=== PATIENT | male | born 1945 | race Caucasian/White ===

== ENCOUNTER 2019-02-08 10:16 | Inpatient (IN) ==
--- NOTE | 2019-02-08 10:18 | Anesthesia Evaluation PreOp ---
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 Any Significant HX Other Medical History: Renal (kidney stones), GERD Anesthesia History: No Prior Anesthetic Complications, Past Anesthesia Alcohol Use: none Drug use: none Medications and Allergies Allopurinol [Zyloprim 300 MG] 300 mg PO DAILY 07/05/16 [History] Aspirin 81 mg PO DAILY 07/05/16 [History] Atenolol [Tenormin] 25 mg PO DAILY 07/05/16 [History] Clopidogrel [Plavix] 75 mg PO DAILY 07/05/16 [History] Cyanocobalamin (Vitamin B-12) [Vitamin B-12] 1,000 mcg SL DAILY 07/05/16 [History] Ergocalciferol (VITAMIN D2) [Vitamin D] 400 unit PO DAILY 07/05/16 [History] Fexofenadine HCl 60 mg PO DAILY 07/05/16 [History] Ginkgo Biloba 60 mg PO DAILY 07/05/16 [History] Glucosamine Sulfate Dipot Chlr [Glucosamine] 1,000 mg PO DAILY 07/05/16 [History] Lactobacillus Acidophilus [Acidophilus] 1 tab PO DAILY 07/05/16 [History] Lisinopril [Zestril] 5 mg PO DAILY PRN 07/05/16 [History] Lovastatin [Mevacor] 20 mg PO HS 07/05/16 [History] Methocarbamol [Robaxin] 500 mg PO BID PRN 07/05/16 [History] OxyCODONE/APAP 5/325 [Percocet 5/325 MG] 2 each PO Q4H PRN #10 tablet 07/05/16 [Rx] Oxycodone HCl/Acetaminophen [Percocet 5-325 mg Tablet] 1 tab PO TID PRN 07/05/16 [History] Tamsulosin [Flomax] 0.4 mg PO DAILY 07/05/16 [History] Allergy/AdvReac Type Severity Reaction Status Date / Time ciprofloxacin Allergy See Verified 01/28/19 08:24 Comments Tetracyclines Allergy Hives Verified 01/28/19 08:24 - Meds/Allergy Pre-op Review Medications Reviewed: Yes Allergies Reviewed: Yes Beta Blockers on Current Med List: Yes If Beta Blockers taken, Date/Time (Last Dose taken): 02/07/2019 at 2200 Anesthesia Results - Labs Laboratory Tests 10/01/18 01/28/19 01/28/19 08:08 08:55 08:55 WBC 7.5 Hgb 15.1 Hct 44.0 Plt Count 100 L Sodium 138 Potassium 4.4 BUN 14 Creatinine 1.22 - Imaging EKG: report reviewed ( 01/28/2019 SINUS BRADYCARDIA NONSPECIFIC T-WAVE ABNORMALITY 07/05/2016 SB, minimal voltage criteria for LVH) Anesthesia Exam O2 Sat Height 1.73 m Weight 78.471 kg O2 Sat by Pulse Oximetry 96 Vital Signs Temp Pulse Resp BP Pulse Ox 97.7 F 62 18 138/89 96 02/08/19 10:53 02/08/19 10:53 02/08/19 10:53 02/08/19 10:53 02/08/19 10:53 Height: 5'8'' Weight: 173 lbs NPO (# of Hours): 8 Pain Scale: 0 Pain Scale Used: Numeric (1 - 10) - HEENT Pupil (Motor): EOMI Mallampati: III Teeth: Normal Oral Opening: Greater than 3 - CHARGING CRANE OPERATOR LOC: Oriented CHARGING CRANE OPERATOR Motor: Normal RUE, Normal LUE, Normal RLE, Normal LLE, Normal Face CHARGING CRANE OPERATOR Sensory: Normal: RUE, LUE, RLE, LLE, Face - Cardiac Rhythm: Regular Murmur: None - Pulmonary Breath Sounds: bilateral Clear Respiratory Effort: Symmetrical Anesthesia Assess/Plan ASA Score: 3 Level of consciousness: Cooperative, Oriented, Tranquil Anesthetic Plan: General Monitoring Plan: Standard Monitors Recovery Plan: PACU
[2019-02-08] MEDS ORDERED: CeFAZolin Syr 2,000MG/20 ML 2,000 MG/20 ML SYRINGE IVPB ONE (10:55)
[2019-02-08] MEDS ORDERED: Albuterol 2.5 MG/3 ML NEBULIZER IH ONE (10:55)
[2019-02-08] MEDS ORDERED: Ringers Solution, Lactated 1,000 ML IVC SCH (11:00)
[2019-02-08] MEDS ORDERED: *HR* HYDROmorphone (PF) 1 MG/ML SYRINGE IVP PRN (11:24)
[2019-02-08] MEDS ORDERED: Ondansetron 4 MG/2 ML VIAL IVP ONE (11:24)
[2019-02-08] MEDS ORDERED: *HR* OxyCODONE Immed Rel 5 MG TABLET PO PRN (11:24)
[2019-02-08] MEDS ORDERED: Neostigmine Methylsulfate 3 MG/3 ML SYRINGE ONE ×2 (11:56→15:06)
[2019-02-08] MEDS ORDERED: *HR* Rocuronium Bromide 50 MG/5 ML VIAL ONE ×2 (12:02→15:51)
[2019-02-08] MEDS ORDERED: Ondansetron 4 MG/2 ML VIAL ONE (12:02)
[2019-02-08] MEDS ORDERED: Lidocaine -MPF 4% 5 ML AMPUL ONE (12:02)
[2019-02-08] MEDS ORDERED: *HR* FentaNYL (PF) 100 MCG/2 ML VIAL ONE ×3 (12:02→15:05)
[2019-02-08] MEDS ORDERED: *HR* Propofol 200 MG/20 ML VIAL IVP ONE (12:02)
[2019-02-08] MEDS ORDERED: Dexamethasone 4 MG/ML VIAL ONE (12:02)
[2019-02-08] MEDS ORDERED: Lidocaine -MPF 2% 2 ML VIAL ONE (12:02)
[2019-02-08] MEDS ORDERED: *HR* Midazolam HCl 2 MG/2 ML VIAL ONE (12:02)
--- NOTE | 2019-02-08 12:42 | History & Physical Report ---
Date of Encounter: 02/08/19 Time of Encounter: 12:42 24 Hour HP Update - Instructions Instructions: If the History and Physical is less than 30 days old and was completed prior to A.M. admission and or procedure and has NOT been updated on calendar day of procedure please complete this update prior to performing procedure. - Update Patient reports changes in Medical Condition: No Changes in examination, assessment, or condition: No Changes in Medication: No Preop tests/diagnostics Reviewed: Yes Surgery Remains Indicated: Yes Consent for Planned Operative Procedure(s) Verified: Yes - Pre-Operative Checklist Preoperative Checklist Indicated: Yes Prophylactic Antibiotic Ordered: Yes Home Medications Include Beta Parker: Yes Is VTE Prophylaxis Indicated?: Yes
[2019-02-08] MEDS ORDERED: EPHEDrine 50 MG/ML VIAL ONE (12:52)
[2019-02-08] MEDS ORDERED: *HR* HYDROMORPHONE 2 MG/ML VIAL ONE (17:43)
--- NOTE | 2019-02-08 18:16 | Operative Note ---
Date of procedure: 02/08/19 Pre-op diagnosis: Prostate cancer Post-op diagnosis: same Procedure: Robotic-assisted radical prostatectomy with bilateral pelvic lymph node dissection Anterior urethropexy Implants: 20-Honduran Patiño catheter 19-Honduran Adolfo drain Complications: None Anesthesia: GETA Surgeon: Sly Moreno Was there an assistant auto center manager present: Yes Weigher Operator: Ania Girard Estimated blood loss (cc): 240 Specimen: Prostate, bilateral pelvic lymph nodes, fat over prostate Condition: stable Disposition: PACU Procedure in Detail: INDICATIONS FOR PROCEDURE: Mr. Warren is a 73 year-old male with history of elevated PSA. He was found on prostate needle biopsy to have Haim 4+4 prostate cancer. Two cores were positive on the biopsy. He is now presenting for robotic assisted prostatectomy with bilateral pelvic lymph node dissection. He was informed of the risks of the procedure including but not limited to bleeding, infection, injury to other structures, need for further procedures, lymphocele, urinary incontinence, urine leak, erectile dysfunction, bladder neck contracture, rectal injury, and the risk of anesthesia. He is willing to proceed. PROCEDURE: After informed consent was obtained, the patient was taken to the operating room, placed supine on the table. He was given IV antibiotics for antibiotic coverage. He had ITZEL's and SCD's placed on the lower extremities for DVT prophylaxis. Induction of general anesthesia was performed. The arms were tucked and he was placed in lithotomy position. He was secured to the OR table with padding. A 10mm incision was made in the infraumbilical region.. The Veress needle was introduced. The water drop test passed. Pneumoperitoneum was initiated with low pressures initially. The abomen was insufflated. I then placed a robotic port through this incision. Once the trocar was in place, the 0 degree camera for the robot was placed in the field and remaining trocars were placed. Robotic ports were placed x 2 on the right side. We placed another robotic port to the left of the umbilicus. We also placed a 12mm port in the left lower quadrant and a 5mm port superior and to the left of the umbilicus. Once all trocars were in place, the robot was docked to the patient and the monopolar scissors were placed on the right robotic arm. The bipolar [place] was in the left robotic arm and the Prograsp in the 4th arm. A posterior approach was initiated. Approximately 1 to 2 cm above the rectum cautery was used to incise the peritoneum. I proceeded with dissection, but I had difficulty finding the vas deferens. Care was taken to avoid the rectum, but I was not confident in my plane of dissection. Therefore, I aborted that approach and proceeded with an anterior dissection. We initially retracted the bowel with the 4th arm. The medial umbilical ligaments were cauterized and the bladder was taken down off the anterior abdominal wall using electrocautery. The bladder was dissected down to the e ndopelvic fascia. The bladder was then grasped with a 4th arm and retracted cephalad. We then swept the periprostatic fat off the prostate as well as the pelvic sidewall. The fat was sent for specimen. We then incised the endopelvic fascia on both sides and carried the incision up to the prostatic apex, sweeping the levator fibers off of the prostate. I then placed a backbleeding stitch near the bladder neck using an 0 Vicryl suture. We then turned our attention to the bladder neck which was incised with the monopolar cautery until the catheter was visualized at the bladder neck. The posterior bladder neck was then opened using the cautery until the space between the prostate and the bladder neck was visualized. Careful dissection using cautery continued along the posterior aspect of the bladder neck. Eventually, the vas deferens and seminal vesicals were encountered. These were brought up into the field and elevated with the fourth arm. I dissected out the vas deferens and seminal vesicles carefully. Denonvillier's fascia was very adherent to the prostate. I carefully dissected it off the prostate posteriorly. The left nerve bundle was then released sharply. I carefully divided the pedicles using multiple Hem-o-von clips to clip the larger prostatic pedicle. Once the pedicles were controlled the nerves were carefully dissected off the posterior aspect of the prostate. Attention was then turned to the right side. The nerve bundle was again released sharply and the pedicles were controlled using Hem-o-von clips. The pedicle was quite adherent to the prostate. I did try to do maintaining somewhat of a nerve sparing approach. We then used the 4th arm to place the prostate on stretch in cephalad direction. The puboprostatic ligaments were carefully incised sharply. We then transected the dorsal venous complex sharply. There was a mild amount of bleeding from the dorsal vein. The dorsal vein was closed using an 0 Vicryl suture in a [id number] fashion. This suture was then placed into the periosteum of the symphysis pubis. This was tied down to provide a urethropexy to help with postoperative continence. Once I got to the urethra this was incised with cold scissors. I cut across the urethra until the catheter was visualized. The catheter was removed and the posterior urethra was transected. The prostate was then freed. Hemostasis was adequate. Fibrillar was placed over top of the neurovascular bundles to help with hemostasis. Attention was then turned to the left pelvic sidewall. The external iliac vein was identified. Careful dissection then isolated the lymph node packet and the obturator nerve was identified. Weck clips were placed at the superior aspect of the lymph node packet. They were also placed at the inferior aspect of the lymph node packet. An identical approach was performed on the right side. The node packets were sent separately. The right-sided pelvic lymph nodes appeared enlarged and more firm. A Alec stitch was then performed from the Denonvillier's fascia near the bladder to an area posterior to the urethra. An 0 Vicryl suture was used. The posterior bladder neck was thinned out. I imbricated the detrusor muscle back to itself using a 3-0 Vicryl suture in a running fashion. I removed the fibrillar. The urethral vesicle anastomosis was then performed with a 3-0 V-Von suture in running fashion starting at 3 o'clock position. With two sutures tied together we then ran along the posterior side about usp. The anterior side was then run around until the bladder was reanastamosed to the urethra. The final 20 Honduran catheter was placed into the bladder and balloon filled with 15 mL of sterile water. The bladder was irrigated. No leak was identified. A 19 [place]uran Adolfo drain was placed through the trocar down into the pelvis. The trocar was removed and drain sewn in place with a suture. The robot was then undocked from the patient. Using laparoscopic instruments I then moved the string from the Endo Catch bag over to the umbilical port with the assistance of the 8 mm robotic camera. After extending the incision slightly with the electrocautery the EndoCatch bag was then removed from the camera port. The abdominal fascia was then closed in a running fashion with 0 Vicryl suture. All incisions were instilled with 0.25% Marcaine. The remaining trocars were removed under direct vision and all incisions were then closed with 4-0 Monocryl in subcuticular fashion. The patient was then awakened from general anesthesia and brought to the recovery room in good condition. All sponge, needle, and instrument counts were correct.
--- NOTE | 2019-02-08 18:44 | Anesthesia Evaluation Post Op ---
Date of Encounter: 02/08/19 Time of Encounter: 18:45 - Vital Signs Vital Signs: Vital Signs/O2 Sat/Glucose, Most Current Temp Pulse Resp BP Pulse Ox 02/08/19 18:30 77 12 89/61 98 02/08/19 18:20 79 12 90/61 98 02/08/19 18:10 98.4 F 85 10 94/60 97 - Lungs Lungs: Clear Ascult./Percussion - Airway Airway: Non-obstructed - Cardiovascular Regular Rate - Mental Status Mental Status: Alert & Oriented, Answers Appropriately - Pain Pain Scale: 0 - Nausea Vomiting Nausea Vomiting: Not Present - Hydration Hydration: NPO - Discharge PostOp Status: Transfer Patient to floor
[2019-02-08] MEDS ORDERED: Naloxone 0.4 MG/ML INJ IVP PRN (20:17)
[2019-02-08] MEDS: *HR* Heparin 5,000 UNIT/ML VIAL SQ SCH (22:49)
[2019-02-08] MEDS: 0.9 % Sodium Chloride 1,000 ML IVC SCH (23:59)
[2019-02-09 08:16] LABS: Hematocrit 34.6 % (37.5-50.1); Hemoglobin 11.5 g/dL (12.9-16.9); Mean Corpuscular HGB Conc 33.2 g/dL (31.6-35.5); Mean Corpuscular Hemoglobin 32.7 pg (28.0-33.3); Mean Corpuscular Volume 98.3 fL (83.0-100.0); Platelet Count 107 K/mcL (140-400); Red Blood Count 3.52 M/mcL (4.19-5.50); Red Cell Distribution Width 13.2 % (11.5-14.5)
[2019-02-09 08:22] LABS: BUN/Creatinine Ratio 22 (6-26); Blood Urea Nitrogen 24 mg/dL (8-23); Calcium 8.6 mg/dL (8.6-10.3); Carbon Dioxide 26 mEq/L (23-29); Chloride 105 mEq/L (98-107); Glucose 130 mg/dL (70-105); Osmolality,Calculated 296 (280-300); Potassium 4.1 mEq/L (3.5-5.1); Sodium 140 mEq/L (136-145); eGFR For Non-African Americans > 60 (> 60)
[2019-02-09] MEDS: Loratadine 10 MG TABLET PO SCH (09:24)
--- NOTE | 2019-02-09 09:32 | Urology Progress Note ---
Date of Encounter: 02/09/19 Time of Encounter: 09:29 - Assessment and Plan (1) Prostate cancer Current Visit: Yes Status: Acute Assessment and plan: 73-year-old man with a history of prostate cancer status post robotic-assisted r adical prostatectomy with bilateral pelvic lymph node dissection. He is having a slow return of bowel function. I will keep him in the hospital today on clear liquids until he begins to pass gas. I encouraged him to ambulate frequently. I will continue the drain to evacuate any mild bleeding from the pelvis. We will give a suppository today. I did inform him that his right pelvic lymph nodes did appear enlarged. We will review his pathology report once it becomes available. Progress Note Narrative: Postoperatively #1 status post robotic-assisted radical prostatectomy with bilateral pelvic lymph node dissection. His pain was well controlled overnight. He did develop some gas pains. He has not passed gas yet. Urine output has been good. TIMOTHY output has been somewhat bloody. Objective Initial Vital Signs Temp Pulse Resp BP Pulse Ox 97.7 F 62 18 138/89 96 02/08/19 10:53 02/08/19 10:53 02/08/19 10:53 02/08/19 10:53 02/08/19 10:53 - General physical appearance Present: well developed, well nourished, no distress - Respiratory Present: normal respiratory effort - Abdomen Present: distended (Mildly distended. Wounds are clean, dry, and intact. TIMOTHY was sanguinous discharge.) - Genitourinary Present: normal penis with no external lesions Urine Appearance: Present: Hematuria (Light pink colored urine. Catheter in place.) - Integumentary Present: no rash - Musculoskeletal Present: normal gait, normal posture - Labs 02/09/19 05:30 02/09/19 05:30 Diabetes panel 02/09/19 Range/Units 05:30 Sodium 140 (136-145) mEq/L Potassium 4.1 (3.5-5.1) mEq/L Chloride 105 (98-107) mEq/L Carbon Dioxide 26 (23-29) mEq/L BUN 24 H (8-23) mg/dL Creatinine 1.09 (0.70-1.30) mg/dL Glucose 130 H (70-105) mg/dL Calcium 8.6 (8.6-10.3) mg/dL Calcium panel 02/09/19 Range/Units 05:30 Calcium 8.6 (8.6-10.3) mg/dL Pituitary panel 02/09/19 Range/Units 05:30 Sodium 140 (136-145) mEq/L Potassium 4.1 (3.5-5.1) mEq/L Chloride 105 (98-107) mEq/L Carbon Dioxide 26 (23-29) mEq/L BUN 24 H (8-23) mg/dL Creatinine 1.09 (0.70-1.30) mg/dL Glucose 130 H (70-105) mg/dL Calcium 8.6 (8.6-10.3) mg/dL Adrenal panel 02/09/19 Range/Units 05:30 Sodium 140 (136-145) mEq/L Potassium 4.1 (3.5-5.1) mEq/L Chloride 105 (98-107) mEq/L Carbon Dioxide 26 (23-29) mEq/L BUN 24 H (8-23) mg/dL Creatinine 1.09 (0.70-1.30) mg/dL Glucose 130 H (70-105) mg/dL Calcium 8.6 (8.6-10.3) mg/dL Consult Discharge Plan - Plan Referrals: Ric Mclain MD [Primary Care Provider] - Sly Moreno MD [Partnered Physician] -
[2019-02-09] MEDS ORDERED: Bisacodyl 10 MG RECTAL SUPPOSITORY RC ONE (09:33)
[2019-02-09] MEDS: Ondansetron 4 MG/2 ML VIAL IVP PRN (11:05)
[2019-02-09] MEDS: Simethicone 80 MG TAB.CHEW PO PRN ×2 (15:08→23:38)
[2019-02-09] MEDS: Acetaminophen 325 MG TABLET PO PRN (15:08)
[2019-02-09] MEDS: *HR* Heparin 5,000 UNIT/ML VIAL SQ SCH ×2 (17:50→18:01)
[2019-02-09] MEDS: Metoclopramide 10 MG/2 ML VIAL IVP SCH ×2 (18:01→23:38)
[2019-02-09] MEDS: 0.9 % Sodium Chloride 1,000 ML IVC SCH ×3 (19:27→22:07)
[2019-02-09] MEDS: OXYCODONE Oral CONC 10 MG/0.5 ML ORAL.SYG SL PRN ×2 (19:44→23:39)
[2019-02-10] MEDS: 0.9 % Sodium Chloride 1,000 ML IVC SCH ×3 (04:11→23:50)
[2019-02-10] MEDS: Simethicone 80 MG TAB.CHEW PO PRN (04:35)
[2019-02-10] MEDS: Metoclopramide 10 MG/2 ML VIAL IVP SCH ×4 (05:17→23:49)
[2019-02-10] MEDS: *HR* Heparin 5,000 UNIT/ML VIAL SQ SCH ×2 (05:18→19:27)
[2019-02-10] MEDS: Ondansetron 4 MG/2 ML VIAL IVP PRN (06:20)
[2019-02-10 07:45] LABS: Hematocrit 30.8 % (37.5-50.1); Mean Corpuscular HGB Conc 32.5 g/dL (31.6-35.5); Mean Corpuscular Volume 101.7 fL (83.0-100.0); Mean Platelet Volume 11.3 fL (9.4-12.4); Platelet Count 105 K/mcL (140-400); Red Blood Count 3.03 M/mcL (4.19-5.50); Red Cell Distribution Width 13.6 % (11.5-14.5)
[2019-02-10 08:02] LABS: BUN/Creatinine Ratio 23 (6-26); Blood Urea Nitrogen 23 mg/dL (8-23); Calcium 8.2 mg/dL (8.6-10.3); Carbon Dioxide 26 mEq/L (23-29); Chloride 108 mEq/L (98-107); Glucose 117 mg/dL (70-105); Osmolality,Calculated 295 (280-300); Potassium 4.1 mEq/L (3.5-5.1); Sodium 140 mEq/L (136-145); eGFR For Non-African Americans > 60 (> 60)
[2019-02-10] MEDS ORDERED: Bisacodyl 10 MG RECTAL SUPPOSITORY RC ONE (08:46)
[2019-02-10] MEDS: Acetaminophen 325 MG TABLET PO PRN (08:50)
[2019-02-10] MEDS: Loratadine 10 MG TABLET PO SCH (08:51)
--- NOTE | 2019-02-10 08:51 | Urology Progress Note ---
Date of Encounter: 02/10/19 Time of Encounter: 08:48 - Assessment and Plan (1) Prostate cancer Current Visit: Yes Status: Acute Assessment and plan: Postop day #2 status post RARP with bilateral PLND. He is having slow return of bowel function. 1. I will keep him nothing by mouth for now with ice chips only. 2. Continue to ambulate 3-4 times per day. 3. Incentive spirometry 10/h. 4. Continue PPI and subcutaneous heparin for prophylaxis. 5. Continue TIMOTHY for now. 6. Will give a Dulcolax suppository. 7. AM labs look okay. Hematocrit has trended down somewhat, but this may be dilutional. I will repeat labs tomorrow. 8. Continue observation status. Progress Note Narrative: Postoperativel day #2 status post robotic-assisted radical prostatectomy with bilateral pelvic lymph node dissection. His pain was well controlled overnight. He feels bloated. He is belching quite a bit. No emesis. He reports a small amount of stool and minimal gas. Urine output has been good. TIMOTHY output has been somewhat bloody. Objective Initial Vital Signs Temp Pulse Resp BP Pulse Ox 97.7 F 62 18 138/89 96 02/08/19 10:53 02/08/19 10:53 02/08/19 10:53 02/08/19 10:53 02/08/19 10:53 - General physical appearance Present: well developed, well nourished, no distress - Respiratory Present: normal respiratory effort - Abdomen Present: distended (incisions are clean, dry, and intact. TIMOTHY with saphenous output.) - Genitourinary Present: normal penis with no external lesions Urine Appearance: Present: Clear (Clear to light pink.) - Integumentary Present: no rash - Musculoskeletal Present: normal posture - Labs 02/10/19 05:50 02/10/19 05:50 Diabetes panel 02/10/19 Range/Units 05:50 Sodium 140 (136-145) mEq/L Potassium 4.1 (3.5-5.1) mEq/L Chloride 108 H (98-107) mEq/L Carbon Dioxide 26 (23-29) mEq/L BUN 23 (8-23) mg/dL Creatinine 0.99 (0.70-1.30) mg/dL Glucose 117 H (70-105) mg/dL Calcium 8.2 L (8.6-10.3) mg/dL Calcium panel 02/10/19 Range/Units 05:50 Calcium 8.2 L (8.6-10.3) mg/dL Pituitary panel 02/10/19 Range/Units 05:50 Sodium 140 (136-145) mEq/L Potassium 4.1 (3.5-5.1) mEq/L Chloride 108 H (98-107) mEq/L Carbon Dioxide 26 (23-29) mEq/L BUN 23 (8-23) mg/dL Creatinine 0.99 (0.70-1.30) mg/dL Glucose 117 H (70-105) mg/dL Calcium 8.2 L (8.6-10.3) mg/dL Adrenal panel 02/10/19 Range/Units 05:50 Sodium 140 (136-145) mEq/L Potassium 4.1 (3.5-5.1) mEq/L Chloride 108 H (98-107) mEq/L Carbon Dioxide 26 (23-29) mEq/L BUN 23 (8-23) mg/dL Creatinine 0.99 (0.70-1.30) mg/dL Glucose 117 H (70-105) mg/dL Calcium 8.2 L (8.6-10.3) mg/dL Consult Discharge Plan - Plan Referrals: Ric Mclain MD [Primary Care Provider] - Sly Moreno MD [Partnered Physician] -
[2019-02-10] MEDS: OXYCODONE Oral CONC 10 MG/0.5 ML ORAL.SYG SL PRN (18:29)
[2019-02-11] MEDS: OXYCODONE Oral CONC 10 MG/0.5 ML ORAL.SYG SL PRN ×2 (00:39→16:28)
[2019-02-11 05:28] LABS: Hematocrit 27.2 % (37.5-50.1); Hemoglobin 8.8 g/dL (12.9-16.9); Mean Corpuscular HGB Conc 32.4 g/dL (31.6-35.5); Mean Corpuscular Volume 101.9 fL (83.0-100.0); Mean Platelet Volume 10.7 fL (9.4-12.4); Platelet Count 101 K/mcL (140-400); Red Blood Count 2.67 M/mcL (4.19-5.50); Red Cell Distribution Width 13.5 % (11.5-14.5)
[2019-02-11] MEDS: *HR* Heparin 5,000 UNIT/ML VIAL SQ SCH (05:36)
[2019-02-11] MEDS: Metoclopramide 10 MG/2 ML VIAL IVP SCH ×3 (05:37→18:09)
[2019-02-11] MEDS: 0.9 % Sodium Chloride 1,000 ML IVC SCH (05:43)
[2019-02-11 05:45] LABS: BUN/Creatinine Ratio 17 (6-26); Blood Urea Nitrogen 17 mg/dL (8-23); Calcium 8.1 mg/dL (8.6-10.3); Carbon Dioxide 26 mEq/L (23-29); Chloride 108 mEq/L (98-107); Glucose 93 mg/dL (70-105); Magnesium 2.1 mg/dL (1.6-2.6); Osmolality,Calculated 293 (280-300); Phosphorous 1.5 mg/dL (2.7-4.5); Potassium 3.5 mEq/L (3.5-5.1); Sodium 141 mEq/L (136-145); eGFR For Non-African Americans > 60 (> 60)
[2019-02-11] MEDS ORDERED: Potassium Phosphate 44 MEQ in 0.9 % Sodium Chloride 250 ML IVPB ONE (08:17)
[2019-02-11] MEDS: Loratadine 10 MG TABLET PO SCH (08:19)
[2019-02-11] MEDS: Acetaminophen 325 MG TABLET PO PRN (08:28)
--- NOTE | 2019-02-11 09:08 | Event Note ---
Date of Encounter: 02/11/19 Time of Encounter: 09:07 TIMOTHY output is still somewhat high and H&H has drifted down. I will hold subcutaneous heparin to minimize risk of bleeding.
[2019-02-11 14:37] LABS: Hematocrit 29.3 % (37.5-50.1); Hemoglobin 9.7 g/dL (12.9-16.9)
--- NOTE | 2019-02-11 15:18 | Urology Progress Note ---
Date of Encounter: 02/11/19 Time of Encounter: 13:30 - Assessment and Plan (1) Prostate cancer Current Visit: Yes Status: Acute Assessment and plan: Patient is a 73-year-old male with [place] 8 prostate cancer who presents 3 days postoperative from robotic-assisted radical prostatectomy with bilateral pelvic lymph node dissection and anterior urethropexy. Vital signs are stable and afebrile. Hemoglobin stabilized at 9.7. Pathology is pending. We will reevaluate patient in a.m. for discharge. Progress Note Subjective: no new complaints Narrative: POD #3. Patient seen and examined sitting upright in bed in no apparent distress. Patient is tolerating normal diet without nausea or vomiting. Patient is experiencing flatus. Patient states pain is well-controlled. Patiño catheter is indwelling and draining transparent, pink lemonade urine into bedsi de bag. Objective Initial Vital Signs Temp Pulse Resp BP Pulse Ox 97.7 F 62 18 138/89 96 02/08/19 10:53 02/08/19 10:53 02/08/19 10:53 02/08/19 10:53 02/08/19 10:53 - General physical appearance Present: well developed, no distress, no pain - Respiratory Present: normal expansion, normal respiratory effort - Abdomen Present: soft, non tender, wound (Primary incisions clean, dry and intact) - Genitourinary Present: other Urine Appearance: Present: Hematuria (Transparent, pink lemonade) - Integumentary Present: no rash, no abnormal pigmentation - Musculoskeletal Present: normal posture - Psychiatric Present: oriented to time, oriented to person, oriented to place, speech is normal, memory intact - Labs 02/11/19 14:10 02/11/19 04:17 Diabetes panel 02/11/19 Range/Units 04:17 Sodium 141 (136-145) mEq/L Potassium 3.5 (3.5-5.1) mEq/L Chloride 108 H (98-107) mEq/L Carbon Dioxide 26 (23-29) mEq/L BUN 17 (8-23) mg/dL Creatinine 1.01 (0.70-1.30) mg/dL Glucose 93 (70-105) mg/dL Calcium 8.1 L (8.6-10.3) mg/dL Calcium panel 02/11/19 Range/Units 04:17 Calcium 8.1 L (8.6-10.3) mg/dL Phosphorus 1.5 L (2.7-4.5) mg/dL Pituitary panel 02/11/19 Range/Units 04:17 Sodium 141 (136-145) mEq/L Potassium 3.5 (3.5-5.1) mEq/L Chloride 108 H (98-107) mEq/L Carbon Dioxide 26 (23-29) mEq/L BUN 17 (8-23) mg/dL Creatinine 1.01 (0.70-1.30) mg/dL Glucose 93 (70-105) mg/dL Calcium 8.1 L (8.6-10.3) mg/dL Adrenal panel 02/11/19 Range/Units 04:17 Sodium 141 (136-145) mEq/L Potassium 3.5 (3.5-5.1) mEq/L Chloride 108 H (98-107) mEq/L Carbon Dioxide 26 (23-29) mEq/L BUN 17 (8-23) mg/dL Creatinine 1.01 (0.70-1.30) mg/dL Glucose 93 (70-105) mg/dL Calcium 8.1 L (8.6-10.3) mg/dL Consult Discharge Plan - Plan Referrals: Ric Mclain MD [Primary Care Provider] - Sly Moreno MD [Partnered Physician] -
[2019-02-11] MEDS: *HR* OxyCODONE Immed Rel 5 MG TABLET PO PRN (21:07)
[2019-02-12] MEDS: Metoclopramide 10 MG/2 ML VIAL IVP SCH ×2 (00:17→08:27)
[2019-02-12] MEDS ORDERED: Bisacodyl 10 MG RECTAL SUPPOSITORY RC ONE (07:30)
[2019-02-12] MEDS: Loratadine 10 MG TABLET PO SCH (08:27)
--- NOTE | 2019-02-12 10:21 | Discharge Summary ---
Orders not resulted at time of discharge: Pending orders 02/08/19 15:12 Surgical Pathology [PTH] Routine 02/12/19 07:36 Creatinine,Body Fluid Routine Date of Encounter: 02/12/19 Time of Encounter: 10:21 - Discharge Diagnosis (1) Prostate cancer Priority: Primary Status: Acute - Hospital Course Hospital course: Mr. Warren is a 73 year old male who presents with a history of [place] 8 prostate cancer. On 02/08/2019, patient was taken to the operating room where he underwent robotic-assisted radical prostatectomy with bilateral pelvic lymph node dissection, and anterior urethropexy. There were no surgical complications, and the patient tolerated the procedure well. The patient developed an ileus postoperatively that was treated conservatively. Patient's diet was slowly advanced, and he was able to move his bowels on postoperative day #3. Patient's drain was removed on postoperative day 4 after obtaining a reassuring TIMOTHY creatinine level. Patient was instructed to follow-up on postoperative day #11 for Patiño removal in our office, and he was dismissed in satisfactory condition. Postoperative expectations, restrictions, activity and follow-up were discussed with patient, and patient verbalized understanding. Time spent discussing smoking cessation with patient: 3 to 10 minutes - Time Spent with Patient Total time spent providing and/or coordinating discharge services: Less than 30 minutes Procedures and tests throughout hospitalization: Robotic-assisted radical prostatectomy with bilateral pelvic lymph node dissection Anterior urethropexy Labs on day of discharge: Labs from last 24 hours 02/11/19 02/11/19 14:10 06:28 Hgb 9.7 L Hct 29.3 L POC Glucose 85 - Discharge Medications Prescriptions: New Docusate [Colace] 100 mg PO BID #30 capsule Continued Allopurinol [Zyloprim 300 MG] 300 mg PO DAILY Methocarbamol [Robaxin] 500 mg PO BID PRN PRN Reason: Muscle Spasm Lovastatin [Mevacor] 20 mg PO HS Atenolol [Tenormin] 25 mg PO HS Aspirin 81 mg PO DAILY Lactobacillus Acidophilus [Acidophilus] 1 tab PO DAILY Glucosamine Sulfate Dipot Chlr [Glucosamine] 1,000 mg PO DAILY Fexofenadine HCl 60 mg PO DAILY Ergocalciferol (VITAMIN D2) [Vitamin D] 400 unit PO DAILY Cyanocobalamin (Vitamin B-12) [Vitamin B-12] 1,000 mcg SL DAILY Potassium Citrate [Urocit-K] 1,080 meq PO BID Tamsulosin HCl [Flomax] 0.4 mg PO DAILY Docusate [Colace] 100 mg PO DAILY PRN PRN Reason: Constipation Esomeprazole Magnesium [Nexium 24Hr] 20 mg PO DAILY PRN PRN Reason: Heartburn Naproxen [Naprosyn] 500 mg PO BID PRN PRN Reason: Pain Home Medications: Allopurinol [Zyloprim 300 MG] 300 mg PO DAILY 07/05/16 [History] Aspirin 81 mg PO DAILY 07/05/16 [History] Atenolol [Tenormin] 25 mg PO HS 07/05/16 [History] Cyanocobalamin (Vitamin B-12) [Vitamin B-12] 1,000 mcg SL DAILY 07/05/16 [History] Ergocalciferol (VITAMIN D2) [Vitamin D] 400 unit PO DAILY 07/05/16 [History] Fexofenadine HCl 60 mg PO DAILY 07/05/16 [History] Glucosamine Sulfate Dipot Chlr [Glucosamine] 1,000 mg PO DAILY 07/05/16 [History] Lactobacillus Acidophilus [Acidophilus] 1 tab PO DAILY 07/05/16 [History] Lovastatin [Mevacor] 20 mg PO HS 07/05/16 [History] Methocarbamol [Robaxin] 500 mg PO BID PRN 07/05/16 [History] Docusate [Colace] 100 mg PO DAILY PRN 02/08/19 [History] Esomeprazole Magnesium [Nexium 24Hr] 20 mg PO DAILY PRN 02/08/19 [History] Naproxen [Naprosyn] 500 mg PO BID PRN 02/08/19 [History] Potassium Citrate [Urocit-K] 1,080 meq PO BID 02/08/19 [History] Tamsulosin HCl [Flomax] 0.4 mg PO DAILY 02/08/19 [History] Docusate [Colace] 100 mg PO BID #30 capsule 02/12/19 [Rx] Allergies/Adverse Reactions: Allergy/AdvReac Type Severity Reaction Status Date / Time Tetracyclines Allergy Hives Verified 02/08/19 11:52 ciprofloxacin AdvReac See Verified 02/08/19 11:52 Comments Date of admission: 02/11/19 17:50 Primary care physician: Ric Mclain MD Discharging clinician: Ania Girard Anticipated date of discharge: 02/12/19 Exam Initial Vital Signs Temp Pulse Resp BP Pulse Ox 97.7 F 62 18 138/89 96 02/08/19 10:53 02/08/19 10:53 02/08/19 10:53 02/08/19 10:53 02/08/19 10:53 - General physical appearance Present: well developed, no distress, no pain - Eyes Present: PERRL, normal ocular movement - ENT Present: normal nares, no hearing loss, no congestion - Neck Present: no masses, trachea midline, no lymphadenopathy - Respiratory Present: normal respiratory effort - Cardiovascular Cardiovascular exam IM: RRR - Abdomen Abdomen: Present: soft, non tender, wound (primary incisions clean, dry, intact; ecchymosis noted to LLQ wound, penis and scrotum ) - Genitourinary other (Patiño catheter indwelling and draining transparent, pink lemonade urine into bedside bag) - Integumentary Present: no rash, no abnormal pigmentation - Neurologic Present: normal coordination - Musculoskeletal Present: normal gait, other (Normal posture) - Patient Status Disposition: Home, Self-Care Condition: Good Functional capacity at discharge: independent ambulation Overall status at discharge: patient is progressing back to baseline - Discharge Instructions Follow Up With: Ric Mclain MD [Primary Care Provider] - Sly Moreno MD [Partnered Physician] - Additional Instructions: Call if fever greater than 101 degrees. Call if incision sites are red, warm, or begin to drain excessively. Okay to shower. No tub baths, swimming, or hot tubs. No lifting greater than 20 pounds or heavy activity. Okay to drive as long as you are no longer taking narcotic pain medicine. Catheter care instructions provided by nursing staff. - Diet and Activity Activity: increase activity as tolerated Diet: advance to your usual diet
[2019-02-12 10:35] VITALS: BP 125/76
[2019-02-12] MEDS: *HR* OxyCODONE Immed Rel 5 MG TABLET PO PRN (12:38)
[2019-02-14 11:20] LABS: Fluid Source for Creatinine PERITONEAL
== END 2019-02-12 15:47 | disposition home or self-care (01) | DRG 707 ==
LOC: 3ANU 10:16 → SAMDAY 10:16 → 3ANU 19:16
PROVIDERS: ADMIT Urology; ATTEND Urology

== ENCOUNTER 2020-04-19 13:28 | Inpatient (IN) ==
[2020-04-19] MEDS ORDERED: Nitroglycerin 0.4 MG TAB.SUBL SL ONE (13:33)
[2020-04-19] MEDS ORDERED: 0.9 % Sodium Chloride 1,000 ML ONE (13:33)
[2020-04-19] MEDS ORDERED: *HR* Heparin 5,000 UNIT/ML VIAL ONE (13:33)
[2020-04-19] MEDS ORDERED: *HR* Ticagrelor 90 MG TABLET ONE (13:33)
[2020-04-19] MEDS ORDERED: Morphine Sulfate 2 MG/ML SYRINGE ONE (13:36)
[2020-04-19] MEDS ORDERED: Morphine Sulfate 2 MG/ML SYRINGE IVP ONE (13:38)
[2020-04-19] MEDS: Nitroglycerin 0.4 MG TAB.SUBL SL SCH ×2 (13:40→13:53)
[2020-04-19] MEDS ORDERED: Ondansetron 4 MG/2 ML VIAL IVP ONE (13:44)
[2020-04-19] MEDS ORDERED: *HR* Heparin 5,000 UNIT/ML VIAL IVP ONE (13:45)
[2020-04-19] MEDS ORDERED: 0.9 % Sodium Chloride 1,000 ML IVC ONE (13:45)
[2020-04-19] MEDS ORDERED: *HR* Ticagrelor 90 MG TABLET PO ONE (13:45)
[2020-04-19] MEDS ORDERED: Ondansetron 4 MG/2 ML VIAL ONE (13:48)
[2020-04-19 13:52] LABS: Basophils # 0.1 K/mcL (0.0-0.2); Basophils % 0.5 %; Eosinophils # 0.1 K/mcL (0.0-0.6); Eosinophils % 0.5 %; Immature Granulocytes % 0.5 % (0-4); Lymphocytes # 2.7 K/mcL (0.6-4.6); Lymphocytes % 21.1 %; Mean Corpuscular HGB Conc 34.9 g/dL (31.6-35.5); Mean Corpuscular Hemoglobin 33.3 pg (28.0-33.3); Mean Corpuscular Volume 95.3 fL (83.0-100.0); Monocytes # 0.8 K/mcL (0.0-1.3); Monocytes % 6.4 %; Neutrophils # 9.2 K/mcL (1.6-8.9); Platelet Count 149 K/mcL (140-400); Red Blood Count 4.51 M/mcL (4.19-5.50); Red Cell Distribution Width 12.6 % (11.5-14.5)
[2020-04-19] MEDS ORDERED: Nitroglycerin 1,000 MCG/10 ML VIAL IV ONE (13:58)
[2020-04-19] MEDS ORDERED: Heparin 1,000 UNITS/500 mL 500 ML ONE ×2 (13:58→14:51)
[2020-04-19] MEDS ORDERED: *HR* Heparin 10,000 UNIT/10 ML VIAL ONE ×2 (13:58→14:07)
[2020-04-19] MEDS ORDERED: ISOVUE-370 200 ML INFUS..BTL ONE (13:58)
[2020-04-19] MEDS ORDERED: 0.9 % Sodium Chloride 2,000 ML ONE (13:58)
[2020-04-19] MEDS ORDERED: *HR* Midazolam HCl 2 MG/2 ML VIAL ONE (14:03)
[2020-04-19] MEDS ORDERED: *HR* FentaNYL (PF) 100 MCG/2 ML VIAL ONE (14:03)
[2020-04-19 14:14] LABS: Alanine Aminotransferase 29 Units/L (7-52); Albumin 4.9 g/dL (3.5-5.7); Albumin/Globulin Ratio 1.7 (1.1-2.2); Alkaline Phosphatase 61 Units/L (34-104); Aspartate Amino Transferase 28 Units/L (13-39); BUN/Creatinine Ratio 14 (6-26); Bilirubin,Direct 0.2 mg/dL (0.0-0.2); Bilirubin,Indirect 0.6 mg/dL (0.0-1.0); Bilirubin,Total 0.8 mg/dL (0.3-1.0); Blood Urea Nitrogen 23 mg/dL (8-23); Calcium 10.7 mg/dL (8.6-10.3); Carbon Dioxide 22 mEq/L (23-29); Chloride 104 mEq/L (98-107); Globulin 2.9 g/dL (2.4-3.5); Glucose 122 mg/dL (70-105); Lipase 42 Units/L (11-82); Osmolality,Calculated 297 (280-300); Potassium 3.4 mEq/L (3.5-5.1); Sodium 141 mEq/L (136-145); Total Protein 7.8 g/dL (6.4-8.9); Troponin I < 0.03 ng/mL (< 0.04); eGFR For African Americans 49 (> 60); eGFR For Non-African Americans 41 (> 60)
[2020-04-19 14:29] LABS: Activated Partial Thrombo Time 27.6 Seconds (26.0-36.0)
[2020-04-19 14:30] LABS: INR 1.1; Prothrombin Time 12.8 Seconds (9.4-12.1)
[2020-04-19] MEDS ORDERED: Tirofiban 12.5 MG/250ML 12.5 MG/250 ML BAG ONE (14:39)
[2020-04-19] MEDS ORDERED: Perflutren Lipid Microsphere 1.3 ML in 0.9 % Sodium Chloride 8.7 ML IVP ONE (15:23)
[2020-04-19] MEDS ORDERED: Tirofiban 12.5 MG/250ML 12.5 MG/250 ML BAG IVC SCH (15:30)
[2020-04-19] MEDS ORDERED: amLODIPine 5 MG TABLET PO STA (19:35)
[2020-04-19] MEDS: *HR* Ticagrelor 90 MG TABLET PO SCH (20:10)
[2020-04-20 04:44] LABS: Basophils % 0.1 %; Eosinophils % 0.3 %; Hematocrit 40.7 % (37.5-50.1); Hemoglobin 13.7 g/dL (12.9-16.9); Immature Granulocytes % 0.5 % (0-4); Lymphocytes # 1.5 K/mcL (0.6-4.6); Lymphocytes % 10.4 %; Mean Corpuscular HGB Conc 33.7 g/dL (31.6-35.5); Mean Corpuscular Hemoglobin 32.8 pg (28.0-33.3); Mean Corpuscular Volume 97.4 fL (83.0-100.0); Mean Platelet Volume 10.1 fL (9.4-12.4); Monocytes # 0.9 K/mcL (0.0-1.3); Monocytes % 6.5 %; Neutrophils # 11.8 K/mcL (1.6-8.9); Platelet Count 138 K/mcL (140-400); Red Blood Count 4.18 M/mcL (4.19-5.50); Red Cell Distribution Width 12.9 % (11.5-14.5); Segmented Neutrophils % 82.2 %; White Blood Count 14.3 K/mcL (4.3-11.1)
[2020-04-20 05:06] LABS: Alanine Aminotransferase 44 Units/L (7-52); Albumin 4.6 g/dL (3.5-5.7); Albumin/Globulin Ratio 1.8 (1.1-2.2); Alkaline Phosphatase 60 Units/L (34-104); Aspartate Amino Transferase 210 Units/L (13-39); BUN/Creatinine Ratio 18 (6-26); Bilirubin,Total 0.7 mg/dL (0.3-1.0); Blood Urea Nitrogen 24 mg/dL (8-23); Calcium 9.6 mg/dL (8.6-10.3); Carbon Dioxide 21 mEq/L (23-29); Chloride 106 mEq/L (98-107); Chol/HDL Ratio 2.1 (0-4.9); Cholesterol 90 mg/dL (< 200); Globulin 2.5 g/dL (2.4-3.5); Glucose 120 mg/dL (70-105); HDL Cholesterol 42 mg/dL (40-59); LDL Cholesterol,Calculated 28 mg/dL (< 100); Osmolality,Calculated 289 (280-300); Potassium 3.8 mEq/L (3.5-5.1); Sodium 137 mEq/L (136-145); Total Protein 7.1 g/dL (6.4-8.9); Triglycerides 101 mg/dL (< 150); eGFR For African Americans > 60 (> 60); eGFR For Non-African Americans 53 (> 60)
[2020-04-20] MEDS ORDERED: Aspirin 81 MG TAB.CHEW PO SCH (09:00)
[2020-04-20] MEDS ORDERED: Isosorbide MONOnitrate (24 HR) 30 MG TAB.ER.24H PO SCH (09:00)
[2020-04-20] MEDS: *HR* Ticagrelor 90 MG TABLET PO SCH ×2 (09:10→19:45)
[2020-04-20] MEDS ORDERED: Perflutren Lipid Microsphere 1.3 ML in 0.9 % Sodium Chloride 8.7 ML IVP ONE ×2 (09:59→15:12)
[2020-04-20] MEDS ORDERED: methocarbamoL 500 MG TABLET PO PRN ×2 (11:31→15:12)
[2020-04-20] MEDS ORDERED: allopurinoL 300 MG TABLET PO SCH (11:45)
[2020-04-20] MEDS: Potassium Citrate 10 MEQ TABLET.ER PO SCH (19:46)
[2020-04-20] MEDS ORDERED: atenoloL 25 MG TABLET PO SCH ×2 (21:00)
[2020-04-20] MEDS ORDERED: Potassium Citrate 10 MEQ TABLET.ER PO SCH (21:00)
[2020-04-21] MEDS ORDERED: Tetracaine/Benzocaine/Butamben 1 SPRAY AEROSOL MM ONE (01:10)
[2020-04-21 05:37] LABS: Basophils % 0.3 %; Eosinophils # 0.1 K/mcL (0.0-0.6); Eosinophils % 1.2 %; Hematocrit 37.6 % (37.5-50.1); Hemoglobin 12.5 g/dL (12.9-16.9); Immature Granulocytes % 0.3 % (0-4); Lymphocytes # 2.2 K/mcL (0.6-4.6); Lymphocytes % 18.4 %; Mean Corpuscular HGB Conc 33.2 g/dL (31.6-35.5); Mean Corpuscular Hemoglobin 32.8 pg (28.0-33.3); Mean Corpuscular Volume 98.7 fL (83.0-100.0); Mean Platelet Volume 10.1 fL (9.4-12.4); Monocytes # 0.9 K/mcL (0.0-1.3); Monocytes % 7.4 %; Neutrophils # 8.5 K/mcL (1.6-8.9); Platelet Count 122 K/mcL (140-400); Red Blood Count 3.81 M/mcL (4.19-5.50); Red Cell Distribution Width 13.2 % (11.5-14.5); Segmented Neutrophils % 72.4 %; White Blood Count 11.7 K/mcL (4.3-11.1)
[2020-04-21 05:50] LABS: Alanine Aminotransferase 37 Units/L (7-52); Albumin 4.6 g/dL (3.5-5.7); Albumin/Globulin Ratio 1.9 (1.1-2.2); Alkaline Phosphatase 53 Units/L (34-104); Aspartate Amino Transferase 114 Units/L (13-39); BUN/Creatinine Ratio 16 (6-26); Bilirubin,Direct 0.2 mg/dL (0.0-0.2); Bilirubin,Indirect 0.7 mg/dL (0.0-1.0); Bilirubin,Total 0.9 mg/dL (0.3-1.0); Blood Urea Nitrogen 20 mg/dL (8-23); Calcium 9.2 mg/dL (8.6-10.3); Carbon Dioxide 23 mEq/L (23-29); Chloride 106 mEq/L (98-107); Globulin 2.4 g/dL (2.4-3.5); Glucose 118 mg/dL (70-105); Osmolality,Calculated 288 (280-300); Potassium 3.7 mEq/L (3.5-5.1); Sodium 137 mEq/L (136-145); eGFR For African Americans > 60 (> 60); eGFR For Non-African Americans 55 (> 60)
[2020-04-21] MEDS: Potassium Citrate 10 MEQ TABLET.ER PO SCH (08:23)
[2020-04-21] MEDS: *HR* Ticagrelor 90 MG TABLET PO SCH (08:26)
[2020-04-21] MEDS ORDERED: Aspirin 81 MG TAB.CHEW PO SCH (09:00)
[2020-04-21] MEDS ORDERED: allopurinoL 300 MG TABLET PO SCH (09:00)
[2020-04-21] MEDS ORDERED: Isosorbide MONOnitrate (24 HR) 30 MG TAB.ER.24H PO SCH (09:00)
[2020-04-21 10:25] VITALS: BP 127/102
== END 2020-04-21 13:30 | disposition home or self-care (01) | DRG 246 ==
LOC: EMEROOARM 13:28 → ICNU 14:10
PROVIDERS: ADMIT Internal Medicine; ATTEND Internal Medicine